=== PATIENT | male | born 1995 | race Caucasian/White ===

== ENCOUNTER 2020-12-27 18:05 | Emergency (ER) | payer OTHER, SELFPAY ==
[2020-12-27 18:13] VITALS: BP 129/78; PULSE 90; RESP 16; TEMP 36.4; O2SAT 99; BMI 30.3
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
[2020-12-27] MEDS: IBUPROFEN 400 MG TABLET 800 MG PO (20:27)
[2020-12-27] MEDS: HYDROCODONE/ACET 5/325 PREPACK 1 BOTTLE MISC (20:27)
[2020-12-27 20:29] VITALS: BP 120/66; PULSE 78; O2SAT 98
== END 2020-12-27 20:30 | disposition home or self-care (01) ==
PROVIDERS: Emergency Provider Emergency Medicine
DX: S42.031A Displaced fracture of lateral end of right clavicle, initial encounter for closed fracture (principal); W17.89XA Other fall from one level to another, initial encounter; Y93.55 Activity, bike riding
CPT/HCPCS: 73000; 73030; 99283; 99284

== ENCOUNTER → 2022-08-26 12:20 | Outpatient (RCR) | payer OTHER, SELFPAY ==
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
--- OUTSIDE RECORDS SUMMARY | 2021-04-09 07:49 | XMS_ITS | Referral Summary ---
:1995 Author Organization [address] [address] Care Team Providers Name Role Phone DO Alejo Primary Care Provider Reason for Referral Consultation (Routine) - Authorized Specialty Diagnoses / Procedures Referred By Contact Refer red To Contact Physical Therapy Diagnoses S/P ORIF (open reduction internal fixation) fracture Macie Gallegos [facility] [address] [phone] Referral ID Status Reason Start Expiration Visits Visits Date Date Requested Authorized [id number] Authorized Specialty 03/05/2021 06/30/2021 1 1 Services Required iagnostic Imaging (Routine) - Closed Specialty Diagnoses / Procedures Referred By Contact Refer red To Contact Radiology Diagnoses S/P ORIF (open reduction internal fixation) fracture Macie Gallegos vh Rb Xray Procedures XR CLAVICLE RIGHT DonovanDO [address] [facility] [address] [place] [address] [place], [place] [address] Referral ID Status Reason Start Date Expiration Date Visits V isits Requested Authorized [id number] Closed Specialty 03/04/2021 02/27/2022 1 1 Services Required Reason for Visit Reason Comments Post-op 8 wk PO Right clavicle ORIF DOS 01/07/21. HEP/Sling/Calcium/VitD. Orthopedic (Routine) - Authorized Specialty Diagnoses / Procedures Referred By Contact Refer red To Contact Orthopedic Surgery / Diagnoses Fracture of unspecified part of unspecified clavicle, initial encounter for closed fracture [facility] Macie Gallegos Orthopaedic Surgery Procedures [place] OFFICE OUTPATIENT VISIT JONES DO Donovan [address] [place], [place] [phone] Referral ID Status Reason Start Date Expiration Date Visits V isits Requested Authorized [id number] Authorized 01/01/2021 06/30/2021 7 7 Encounter Details Date Type Department Care Team Description 03/05/2021 Office Visit [facility] Macie Gallegos S/P O RIF (open Clinics Orthopedics DO Donovan reduction internal [place] [address] [facility] fixation) fracture [address] [place], [place] (Primary Dx) [place] [phone] Allergies No known active allergiesdocumented as of this encounter (statuses as of 04/04/2021) Medications No known medicationsdocumented as of this encounter (statuses as of 04/04/2021) Active Problems Problem Noted Date S/P ORIF (open reduction internal fixation) fracture 0 01/13/2021 Closed displaced fracture of right clavicle 01/06/2021 Overview: Added automatically from request for debbie jessy [id number] documented as of this encounter (statuses as of 04/04/2021) Social History Tobacco Use Types Packs/Day Years Used Date Never Smoker Smokeless Tobacco: Never Used Alcohol Use Standard Drinks/Week Comments Yes 1 (1 standard drink = 0.6 oz pure alcoho l) Sex Assigned at Date Recorded Not on file Job Start Date Occupation Industry Not on file Not on file Not on file documented as of this encounter Last Filed Vital Signs Vital Sign Reading Time Taken Comments Blood Pressure 120/78 03/05/2021 9:25 AM PDT Pulse 65 03/05/2021 9:25 AM PDT Temperature - - Respiratory Rate - - Oxygen Saturation 98% 03/05/2021 9:25 AM PDT Inhaled Oxygen Concentration - - Weight 108 kg (239 lb) 03/05/2021 9:25 AM PDT Height - - Body Mass Index 31.54 02/13/2021 9:37 AM PDT documented in this encounter Progress Notes Rosy Arauz - 03/05/2021 9:15 AM PDT Physical therapy has been ordered focusing on passive and active exercises and after 4 weeks we willhave you start progressive strengthening. Avoid heavy weightbearing. Limit to a phone or cup of water. Continue Vitamin E oil and Calcium/Vitamin D supplementation. Follow up in 6 weeks for re-evaluation with xrays. hristopher Donovan Gallegos DO - 03/05/2021 9:15 AM PDT S: The patient is a 25 y.o. male status post right clavicle ORIF by Dr. Gallegos Date of Surgery: 01/07/21 Complaints: none Weeks post op: 6 days Pain is controlled with: Tylenol Pain level: 0/10 Narcotic use: 0 WB status: NWB Physical therapy: none Patient is ambulating: Sling Interim progress: Follow up 03/05/21 Patient is present today for post right shoulder ORIF. He is doing well. He has not complaints today. O: BP 120/78 Pulse 65 Wt 108 kg SpO2 98% BMI 31.54 kg/m?? Gen.: Well-appearing well-nourished in no acute distress. Normal mood and affect. Right Shoulder Inspection: Incision is healing well with no erythema or drainage. Ecchymosis: - No signs of a DVT No signs of infection There are no distal neurovascular deficits. Forward Flexion: 160 Passive ER: 75 Internal rotation: to T7 Neurovascularly intact Previous Right clavicle radiographs demonstrate maintained alignment, stable hardware no signs of loosening or hardware failure A: Status post Right clavicle ORIF. Xray's demonstrate interval healing and intact hardware. Patient ishealing as expected for 8 weeks post-operative. I have ordered him physical therapy to start focusing on passive and active exercises and after 4 weeks we will have him start progressive strengthening.We discussed avoiding heavy weightbearing and should limit to a phone or cup of water. He is going to continue his Vitamin E and Calcium/Vitamin D supplementation. Plan to follow up in 6 weeks for re-evaluation with x-ray. PLAN: Physical therapy has been ordered focusing on passive and active exercises and after 4 weeks we willhave you start progressive strengthening. Avoid heavy weightbearing. Limit to a phone or cup of water. Continue Vitamin E oil and Calcium/Vitamin D supplementation. Follow up in 6 weeks for re-evaluation with x-ray. Rosy Jaime, have scribed for, and in the presence of Macie Gallegos DO. 03/05/2021 Macie Jaime DO, personally performed the services described in this documentation, as scribed by person mentioned above in my presence, and it is both accurate and complete. 03/05/2021 documented in this encounter Plan of Treatment Upcoming Encounters Date Type Specialty Care Team Description 04/10/2021 Office Visit Orthopaedic Surgery Macie Gallegos DO [address] [place] [address] (Wo rk) Scheduled Referrals Name Type Priority Associated Order Schedule Diagnoses XTRNL Referral to Outpatient Referral Routine S/P ORIF (open 1 Occurrences Physical Therapy reduction internal start ing 03/05/2021 fixation) fracture until 10/2021 documented as of this encounter Implants Implanted Type Area Laboratory Apparatus Glass Blower Device Shelf Model / Identifier Expiration Serial / Date Lot Plate, Clavicle 8-Hole R 130mm - [id number] Right: Synthes 112.094 / Implanted: Qty: 1 on 01/07/2021 by Macie Nelson DO at [facility] Shoulder / Screw,2.4mm Marky Self Tap 16mm - [id number] Synthes 201.766 / Implanted: Qty: 1 on 01/07/2021 by Macie Nelson DO at [facility] / Screw, 2.7*14mm Locking - [id number] Synthes 202.214 / Implanted: Qty: 3 on 01/07/2021 by Macie Nelson DO at [facility] / Screw, 2.7*16mm Locking - [id number] Synthes 202.216 / Implanted: Qty: 2 on 01/07/2021 by Macie Nelson DO at [facility] / Screw, Locking 3.5*20mm - [id number] Synthes 212.106 / Implanted: Qty: 1 on 01/07/2021 by Macie Nelson DO at [facility] / Screw, Cortex 3.5*18mm St - [id number] Synthes 204.818 / Implanted: Qty: 2 on 01/07/2021 by Macie Nelson DO at [facility] / Screw, Cortex 2.7*18mm - [id number] Synthes 202.818 / Implanted: Qty: 1 on 01/07/2021 by Macie Nelson DO at [facility] / Screw, Cortex 3.5*16mm St - [id number] Synthes 204.816 / Implanted: Qty: 1 on 01/07/2021 by Macie Nelson DO at [facility] / Screw, Locking 3.5*18mm - [id number] Synthes 212.105 / Implanted: Qty: 1 on 01/07/2021 by Macie Nelson DO at [facility] / documented as of this encounter Results XR CLAVICLE RIGHT (03/05/2021 9:21 AM PDT) Anatomical Region Laterality Modality Body, Clavicle Right Radiographic Imaging Specimen [facility] - 03/05/2021 11:05 [place]. [address] PATIENT NAME: BENNIE WATTS : 1995 GENDER: M EXAM DATE: 03/05/2021 ?? 9:17 [facility] ORDER[facility] PHYSICIAN: MACIE Solis CC: ??-- ??- ??- ??- CONTRAST: ? READING STATION ID: [id number] mGy: PROCEDURE: ??XR CLAVICLE RIGHT INDICATIONS: ??fracture TECHNIQUE: ??2 views of the clavicle wer e acquired. ?? COMPARISON: ??[facility], CR, XR CL AVICLE RT, 12/27/2020, 18:27. ??[facility], CR, XR CLAVICLE RIGHT, 02/13/2021, 9:24. FINDINGS: ?? Bones: ??Postsurgical changes are redemo nstrated status post ORIF of previously visualized comminuted clavicular shaft fracture. ??There is no change in alignment. ??Surgical hardware appears intact. ?? There is bony remodeling with decreased lucency along the fracture margins. Soft tissues: ??No suspicious soft tissu e calcifications. ?? IMPRESSION: ??Stable postsurgical sequel ae and and further healing of distal right clavicular shaft fracture. Reviewed by: Arian Westfall A Interprete d: Femi Carrasquillo MD on 03/05/2021 at 9:52 ?? Transcribed by: CADENCE on 03/05/2021 at 9:53 ? Approved by: Femi Carrasquillo M.D. on 10/2020 at 11:05 ? Procedure Note Femi Carrasquillo P - 03/05/2021 [place]. [address] PATIENT NAME: BENNIE WATTS : 1995 GENDER: M EXAM DATE: 03/05/2021 9:17 ORDERED FROM: [facility] ORDERING PHYSICIAN: MACIE Solis CC: -- - - - CONTRAST: READING STATION ID: [id number] mGy: PROCEDURE: XR CLAVICLE RIGHT INDICATIONS: fracture TECHNIQUE: 2 views of the clavicle were acquired. COMPARISON: [facility], CR, XR CLA VICLE RT, 12/27/2020, 18:27. [facility], CR, XR CLAVICLE RIGHT, 02/13/2021, 9:24. FINDINGS: Bones: Postsurgical changes are redemon strated status post ORIF of previously visualized comminuted clavicular shaft fracture. There is no change in alignment. Surgical hardware appears intact. There is bony remodeling with decreased lucency along the fracture margins. Soft tissues: No suspicious soft tissue calcifications. IMPRESSION: Stable postsurgical sequela e and and further healing of distal right clavicular shaft fracture. Reviewed by: Arian Westfall RRA Interprete d: Femi Carrasquillo MD on 03/05/2021 at 9:52 Transcribed by: CADENCE on 03/05/2021 at 9:53 Approved by: Femi Carrasquillo M.D. on 10/2020 at 11:05 Performing Organization Address City/State/ZIP Code [facility] e Number [facility] [address] [place] [id number] documented in this encounter Visit Diagnoses Diagnosis S/P ORIF (open reduction internal fixati on) fracture - Primary S/P ORIF (open reduction internal fixati on) fracture S/P ORIF (open reduction internal fixati on) fracture - Primary documented in this encounter Insurance Payer Benefit Plan / Subscriber ID Effective Dates Phone Addre ss Type Group [id number] 2017-Present [phone] [address] [place] [address] documented as of this encounter Advance Directives Documents on File Type Date Recorded 

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
--- NOTE | 2021-04-16 14:39 | PT-OP ANOTE ---
Pt called to cancel same-day appointment due to work conflict. 

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
== END | disposition home or self-care (01) ==
LOC: PHYS 03-19 15:06
PROVIDERS: PCP Orthopaedic Surgery; Referring Provider Orthopaedic Surgery; Visit Provider Orthopaedic Surgery
DX: S42.001A Fracture of unspecified part of right clavicle, initial encounter for closed fracture (principal); Z98.890 Other specified postprocedural states; Z87.81 Personal history of (healed) traumatic fracture
CPT/HCPCS: 97110; 97140; 97161